=== PATIENT | female | born 1975 | race African-American/Black ===

== ENCOUNTER 2021-09-14 13:28 | Emergency (ER) | payer OTHER, SELFPAY ==
--- NOTE | ~2021-09-14 | CT_ITS ---
EXAMINATION: CT BRAIN W/O DATE: 09/14/2021 15:02 INDICATION: Frontal headache TECHNIQUE: Computed tomography (CT) of the head was performed without intravenous contrast. The dose- length product was 605.33 mGy-cm. Automated exposure control and iterative reconstruction technique w ere employed. COMPARISON: No prior studies for comparison. FINDINGS: Normal brain parenchymal volume for age. Normal castellon-white differentiation. No acute intrac ranial hemorrhage, infarction, mass or mass effect. No ventriculomegaly or midline shift. Midline sagittal images demonstrate a normal corpus callosum, c raniovertebral junction and sella turcica. Basilar cisterns are patent. Paranasal sinuses and mastoids are pneumatized. No depressed skull fractures. IMPRESSION: 1. No acute intracranial abnormality. Reviewed, dictated and finalized at location A. 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
--- NOTE | ~2021-09-14 | XR_ITS ---
EXAMINATION: XR chest 1V portable 09/14/2021 14:57 INDICATION: Frontal headache. PROCEDURE: AP portable chest COMPARISON: No prior studies for comparison. FINDINGS: The lungs are clear. The cardiomediastinal silhouette is within normal limits. There are no pleural effusions. There is no pneumothorax suspected. IMPRESSION: 1: NO ACUTE CARDIOPULMONARY DISEASE. Reviewed, dictated and finalized at location A. 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
[2021-09-14 13:35] VITALS: BP 131/66; PULSE 93; RESP 16; TEMP 36.2; O2SAT 100
--- NOTE | 2021-09-14 14:55 | PC.NURSE ---
Pt off floor to radiology
[2021-09-14 15:32] LABS: Basophils Percent Auto 0.5 % (0.2-1.2); Eosinophils Absolute Auto 0.1 K/mm3 (0-0.3); Eosinophils Percent Auto 1.3 % (0-4.4); Hematocrit 39.1 % (37.0-47.0); Hemoglobin 12.2 g/dL (12.0-15.0); Immature Granulocyte Absolute 0.03 K/mm3 (0.00-0.031); Immature Granulocyte Percent A 0.4 % (0-0.5); Lymphocytes Absolute Auto 2.24 K/mm3 (0.9-3.2); Lymphocytes Percent Auto 26.5 % (18.3-44.2); Mean Corpuscular HGB Conc 31.2 g/dl (32-36); Mean Corpuscular Hemoglobin 28.7 pg (26-34); Mean Platelet Volume 11.4 fl (7.4-10.4); Monocytes Absolute Auto 0.6 K/mm3 (0.1-0.6); Monocytes Percent Auto 6.6 % (2.6-8.5); Neutrophils Absolute Auto 5.5 K/mm3 (1.3-6.7); Neutrophils Percent Auto 64.7 % (45.5-73.1); Platelet Count Result 283 k/mm3 (150-375); Red Blood Count 4.25 M/mm3 (4.2-5.4); Red Cell Distribution Width 15.2 % (11.5-14.5); White Blood Count 8.5 K/mm3 (4.5-10.0)
[2021-09-14 15:44] LABS: Alanine Aminotransferase 16 U/L (4-35); Albumin Level 4.1 g/dL (3.5-5.1); Alkaline Phosphatase 72 U/L (38-126); Anion Gap 8 mmol/L (8-16); Aspartate Amino Transferase 33 U/L (14-36); Bilirubin,Total 0.6 mg/dL (0.2-1.3); Blood Urea Nitrogen 10 mg/dL (7-17); Calcium 8.6 mg/dL (8.4-10.2); Carbon Dioxide 22 mmol/L (22-30); Chloride 110 mmol/L (98-107); Estimated CRCL calculation 84 ml/min; Estimated Glomerular Filt Rate > 60; Glucose 74 mg/dL (65-110); Potassium 3.4 mmol/L (3.4-5.0); Sodium 140 mmol/L (137-145)
[2021-09-14 15:52] LABS: Add Urine Microscopic? YES; Appearance Urine Cloudy (Clear); Bilirubin Urine Negative (Negative); Blood Urine 2+ (Negative); Color Urine Red (Yellow); Glucose Urine UA Negative (Negative); Ketones Urine Trace mg/dL (Negative); Leukocyte Esterase Ur Negative LEU/UL (Negative); Mucus Urine Rare /lpf; Nitrate Urine Negative (Negative); Protein Urine 2+ mg/dL (Negative); RBC Urine >75 /hpf (0-2); Squamous Epithelial Cell Urine Few /hpf (Few); WBC Urine >75 /hpf
--- NOTE | 2021-09-14 16:10 | ED.GENADULT ---
HPI - General Adult General Chief complaint: Dizziness Stated complaint: hand and feet swelling; dizziness Time Seen by Provider: 09/14/21 13:50 Source: patient Mode of arrival: ambulatory Limitations: no limitations History of Present Illness HPI narrative: Patient is 46 years old -[place] female presented to the ED complaining of the feeling of her hand swelling and frontal headache started 2 days ago. Constant. History of sinus headache, been taken sinus medication without improvement. Patient denies any fever, chills, nausea, vomiting, nasal or postnasal discharge or facial pain. Patient also feels that her heart beats in her hands. Patient does not smoke or drink or uses marijuana Related Data Allergies Allergy/AdvReac Type Severity Reaction Status Date / Time No Known Allergies Allergy Verified 09/14/21 13:30 Review of Systems Review of Systems: CONSTITUTIONAL: Denies fever, chills, or sweats. EYES: Denies visual changes, redness, or discharge. ENT: Denies rhinorrhea, congestion, sore throat, or otalgia. CARDIOVASCULAR: Denies chest pain, palpitations, or edema. RESPIRATORY: Denies cough or dyspnea. GASTROINTESTINAL: Denies abdominal pain, nausea, vomiting, or diarrhea. GENITOURINARY: Denies dysuria or hematuria. SKIN: Denies rash or itching. MUSCULOSKELETAL: Denies back pain, joint pain, or myalgia. NEUROLOGIC: Denies headache, numbness, or weakness. PSYCHIATRIC: Denies anxiety or depression. Exam Narrative: General appearance: Well-developed, well-nourished Skin: Normal color Head: Normocephalic, nontraumatic Eyes: Clear conjunctiva ENT: Oropharynx normal, ears normal, nose normal Neck: Supple, nontender Chest and respiratory: Airway patent, no respiratory distress, no accessory muscle use Heart: Regular rate/rhythm Abdomen: Soft, nontender, no organomegaly, quiet bowel sounds Vascular: Normal peripheral pulses, normal capillary refill. 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, no gross motor deficit Course Course Emergency Course: Stable, improving Vital Signs Vital signs: Vital Signs Temperature 36.2 C L 09/14/21 13:35 Pulse Rate 93 09/14/21 13:35 Respiratory Rate 16 09/14/21 13:35 Blood Pressure 131/66 09/14/21 13:35 Pulse Oximetry 100 09/14/21 13:35 Temperature 36.2 C L 09/14/21 13:35 Pulse Rate 93 09/14/21 13:35 Respiratory Rate 16 09/14/21 13:35 Blood Pressure 131/66 09/14/21 13:35 Pulse Oximetry 100 09/14/21 13:35 Medical Decision Making Vital Signs Vital Signs: Vital Signs Temperature 36.2 C L 09/14/21 13:35 Pulse Rate 93 09/14/21 13:35 Respiratory Rate 16 09/14/21 13:35 Blood Pressure 131/66 09/14/21 13:35 Pulse Oximetry 100 09/14/21 13:35 Temperature 36.2 C L 09/14/21 13:35 Pulse Rate 93 09/14/21 13:35 Respiratory Rate 16 09/14/21 13:35 Blood Pressure 131/66 09/14/21 13:35 Pulse Oximetry 100 09/14/21 13:35 Lab Data Result diagrams: 09/14/21 15:22 09/14/21 15:22 Labs: Lab Results 09/14/21 09/14/21 09/14/21 Range/Units 15:22 15:22 15:22 WBC Pending RBC Pending Hgb Pending Hct Pending MCV Pending MCH Pending MCHC Pending RDW Pending Plt Count Pending MPV Pending Immature Gran % (Auto) Pending Neut % (Auto) Pending Lymph % (Auto) Pending [place] % (Auto) Pending Eos % (Auto) Pending Baso % (Auto) Pending Lymph # (Auto) Pending [place] # (Auto) Pending Eos # (Auto) Pending Baso # (Auto) Pending Abs Immat Gran (auto)
[2021-09-14 16:20] LABS: Erythrocyte Sedimentation Rate 17 mm/hr (0-20)
[2021-09-14] MEDS: KETOROLAC 30 MG/ML VIAL (*BKC) IV PUSH (16:45)
== END 2021-09-14 17:10 | disposition home or self-care (01) ==
PROVIDERS: Emergency Provider Emergency Medicine
DX: N39.0 Urinary tract infection, site not specified (principal)
CPT/HCPCS: 36415; 70450; 71045; 80053; 81001; 84443; 85025; 85652; 87086; 96365; 96375; 99284; J0696; J1885